=== PATIENT | female | born 1955 | race Caucasian/White ===

== ENCOUNTER 2020-06-17 17:56 | Emergency (ER) | payer OTHER ==
[2020-06-17] MEDS: Morphine 2 MG/ML SYRINGE IVPUSH ONE (18:25)
[2020-06-17] MEDS: Sodium Chloride 0.9% 1,000 ML IV ONE ×2 (18:50→19:44)
--- NOTE | 2020-06-17 19:20 | EDM.PDOC ---
ED HPI GENERAL MEDICAL PROBLEM - General Chief Complaint: General Stated Complaint: abdominal pain Time Seen by Provider: 06/17/20 18:00 Source of Information: Reports: Patient History Limitations: Reports: No Limitations - History of Present Illness INITIAL COMMENTS - FREE TEXT/NARRATIVE: Ms. Roman is a 64 YOF here for left flank pain. She takes no medications on a regular basis. She has not taken anything today for her pain. Reports blood in her urine. She has no fever. No N, V, or D. Lung are CTA. Normal HRR. No guarding or rebound tenderness. 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 GI/Abdominal: Reports: Abdominal Pain : Reports: Hematuria ED EXAM, GENERAL - Physical Exam Exam: See Below Exam Limited By: No Limitations General Appearance: Alert, Moderate Distress Eye Exam: Bilateral Eye: PERRL Nose: Normal Inspection, Normal Mucosa Throat/Mouth: Normal Inspection, Normal Lips, Other (Dentures) Neck: Normal Inspection, Supple, Non-Tender Respiratory/Chest: No Respiratory Distress, Lungs Clear, Normal Breath Sounds Cardiovascular: Normal Peripheral Pulses, Regular Rate, Rhythm, No Edema Peripheral Pulses: 2+: Brachial (L), Brachial (R) GI/Abdominal: Normal Bowel Sounds, Soft, Non-Tender Back Exam: Normal Inspection, Full Range of Motion Extremities: Normal Inspection, Normal Range of Motion Neurological: Alert, Oriented, CN II-XII Intact, Normal Cognition Psychiatric: Normal Affect, Normal Mood Skin Exam: Warm, Dry, Intact, Normal Color, Other (Left soft tissue breast lump, Feels solid not fixed. ) Lymphatic: No Adenopathy Course - Vital Signs Last Recorded V/S: Last Vital Signs Temp 36.3 C 06/17/20 18:10 Pulse 84 06/17/20 18:10 Resp 20 06/17/20 18:10 BP 201/150 H 06/17/20 18:10 Pulse Ox 96 06/17/20 18:10 - Orders/Labs/Meds Orders: Active Orders 24 hr Category Date Time Status Chest 2V [CR] Stat Exams 06/17/20 18:48 Ordered Kidney Stone Protocol [CT] Stat Exams 06/17/20 18:18 Taken Kidney Stone Protocol [CT] Stat Exams 06/17/20 18:24 Ordered COMPREHENSIVE METABOLIC PN,CMP [CHEM] Stat Lab 06/17/20 18:18 Ordered UA RFX MENDEZ AND CULT IF INDIC [URIN] Stat Lab 06/17/20 18:16 Received Sodium Chloride 0.9% [Normal Saline] 1,000 ml Med 06/17/20 18:20 Active IV .BOLUS Medication Orders Sodium Chloride (Normal Saline) 1,000 mls @ 999 mls/hr IV .BOLUS ONE Stop: 06/17/20 19:20 Last Admin: 06/17/20 18:50 Dose: 999 mls/hr Documented by: RADHA Labs: Laboratory Tests 06/17/20 Range/Units 18:17 WBC 10.7 (4.0-11.0) K/uL RBC 4.50 (3.80-5.80) M/uL Hgb 14.3 (11.5-16.5) g/dL Hct 41.4 (37.0-47.0) % MCV 92 (76-96) fL MCH 31.8 (27.0-32.0) pg MCHC 34.5 (31.0-35.0) g/dL RDW 12.7 (11.0-16.0) % Plt Count 325 (150-500) K/uL MPV 9.7 (6.0-10.0) fL Neut % (Auto) 59.4 (45.0-70.0) % Lymph % (Auto) 33.6 (20.0-40.0) % Pope % (Auto) 5.9 (3.0-10.0) % Eos % (Auto) 0.9 L (1.0-5.0) % Baso % (Auto) 0.2 (0.0-0.5) % Neut # (Auto) 6.35 (2.00-7.50) K/uL Lymph # (Auto) 3.59 (1.50-4.00) K/uL Pope # (Auto) 0.63 (0.20-0.80) K/uL Eos # (Auto) 0.10 (0.04-0.40) K/uL Baso # (Auto) 0.02 (0.02-0.10) K/uL Meds: Medications Generic Name Dose Route Start Last Admin Trade Name Freq PRN Reason Stop Dose Admin Sodium Chloride 1,000 mls @ 999 mls/hr 06/17/20 18:20 06/17/20 18:50 Normal Saline IV 06/17/20 19:20 999 mls/hr .BOLUS ONE Administration Discontinued Medications Generic Name Dose Route Start Last Admin Trade Name Freq PRN Reason Stop Dose Admin Morphine Sulfate 1 mg 06/17/20 18:10 06/17/20 18:25 Morphine IVPUSH 06/17/20 18:11 1 mg ONETIME ONE Administration Departure - Departure Time of Disposition: 21:20 Disposition: Home, Self-Care 01 Condition: Good Clinical Impression: Renal and ureteric calculus Hematuria Qualifiers: Hematuria type: gross Qualified Code(s): R31.0 - Gross hematuria - Discharge Information *PRESCRIPTION DRUG MONITORING PROGRAM REVIEWED*: Not Applicable Instructions: Kidney Stones, Dvep-sk-Ored Additional Instructions: Increase fluids. Take pain medications as prescribed. F/U with ED and or PCP for new or worsening symptoms. Keep appointment with PCP for left breast lump evaluation. Sepsis Event Note (ED) - Evaluation Sepsis Screening Result: No Definite Risk - Focused Exam Vital Signs: Vital Signs Temp Pulse Resp BP Pulse Ox 06/17/20 18:10 36.3 C 84 20 201/150 H 96 - My Orders Last 24 Hours: My Active Orders 06/17/20 18:16 UA RFX MENDEZ AND CULT IF INDIC [URIN] Stat 06/17/20 18:18 Kidney Stone Protocol [CT] Stat COMPREHENSIVE METABOLIC PN,CMP [CHEM] Stat 06/17/20 18:20 Sodium Chloride 0.9% [Normal Saline] 1,000 ml IV .BOLUS 06/17/20 18:24 Kidney Stone Protocol [CT] Stat 06/17/20 18:48 Chest 2V [CR] Stat - Assessment/Plan Last 24 Hours: My Active Orders 06/17/20 18:16 UA RFX MENDEZ AND CULT IF INDIC [URIN] Stat 06/17/20 18:18 Kidney Stone Protocol [CT] Stat COMPREHENSIVE METABOLIC PN,CMP [CHEM] Stat 06/17/20 18:20 Sodium Chloride 0.9% [Normal Saline] 1,000 ml IV .BOLUS 06/17/20 18:24 Kidney Stone Protocol [CT] Stat 06/17/20 18:48 Chest 2V [CR] Stat Assessment:: 2 left renal Calculi Plan: Increase fluids. Take pain medications as prescribed. F/U with ED and or PCP for new or worsening symptoms. Keep appointment with PCP for left breast lump evaluation.
[2020-06-17] MEDS ORDERED: Acetaminophen/oxyCODONE 325-5 MG Tab ONE (20:00)
--- NOTE | 2020-06-18 07:08 | CR ---
Date of Service: 06/17/20 Clinical Data: Abdominal pain, breast lump PA AND LATERAL CHEST: The heart size is normal. The lungs are clear. No pneumothorax. No pleural effusions. No evidence of acute intrathoracic disease. [id number] MTDD
--- NOTE | 2020-06-18 08:40 | CT ---
DATE OF SERVICE: 06/17/20 CLINICAL DATA: abdominal pain UNENHANCED ABDOMEN AND PELVIC CT: Multislice axial acquisition through the abdomen and pelvis without IV or oral contrast was performed. No priors. There are emphysematous changes in both lung bases. There are mild atelectatic changes in the dependent portion of both lower lungs, right greater than left. There is a 4 mm pleural-based nodule in the right middle lobe. There are cystic changes in both lung bases with peripheral honeycombing in the right lung base posteriorly. The unenhanced liver appears normal. No focal hepatic lesions. The gallbladder is partially contracted. It appears normal. The spleen appears normal. The pancreas appears normal. The right and left adrenals appear normal. There is a 3 mm distal ureteral calculus located in the distal left ureter at the S4 level. There is hydronephrosis and hydroureter proximal to it. There is a 2 mm nonobstructing renal calculi in the lower mid pole of the left kidney. The right and left kidneys and collecting systems are otherwise unremarkable. There is a small amount of fluid within the bladder. It appears grossly normal. There is mild diverticulosis of the colon. No evidence of diverticulitis. No free air. No free fluid. No dilated loops of bowel. No adenopathy. No aortic aneurysm. There is a small fat-containing umbilical hernia. There is mild degenerative disc disease at multiple levels in the lower thoracic and lumbar spine. IMPRESSION: 3 mm distal ureteral calculus on left with proximal hydronephrosis and hydroureter. Other findings as discussed above. [id number] [facility]
== END 2020-06-17 20:50 | disposition home or self-care (01) ==
LOC: LB.ED 17:56
DX: N13.2 Hydronephrosis with renal and ureteral calculous obstruction (principal); R31.0 Gross hematuria; N63.0 Unspecified lump in unspecified breast; Z72.0 Tobacco use
CPT/HCPCS: 36415; 71046; 74176; 80053; 81001; 85025; 96374; 99284; A9270; J2270; J7030

== ENCOUNTER 2021-01-08 12:15 | Emergency (ER) | payer OTHER ==
--- NOTE | 2021-01-08 13:30 | EDM.PDOC ---
ED HPI GENERAL MEDICAL PROBLEM - General Chief Complaint: Upper Extremity Injury/Pain Stated Complaint: PAIN IN LEFT ARM Time Seen by Provider: 01/08/21 13:10 Source of Information: Reports: Patient History Limitations: Reports: No Limitations - History of Present Illness INITIAL COMMENTS - FREE TEXT/NARRATIVE: patient here due to left lower rib cage pain and left shoulder pain. Reports that she fell 2 days ago on the ground when she trying to get off the bus. She landed on her left side. But since then, her rib cage has been hurting here, more with deep breathing, laughing or turning around. no fever or chills. Also reports pain in the left shoulder - hard to sleep on it. no other body injuries. 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 Review of Systems - Review of Systems Review Of Systems: See Below Constitutional: Reports: No Symptoms Eyes: Reports: No Symptoms Respiratory: Reports: No Symptoms Cardiovascular: Reports: No Symptoms GI/Abdominal: Reports: No Symptoms Skin: Reports: No Symptoms ED EXAM, GENERAL - Physical Exam Exam: See Below Exam Limited By: No Limitations General Appearance: Alert, WD/WN, No Apparent Distress Eye Exam: Bilateral Eye: EOMI Respiratory/Chest: No Respiratory Distress, Lungs Clear, Normal Breath Sounds, Other (mild left chest wall tenderness) GI/Abdominal: Normal Bowel Sounds, Soft, Non-Tender Extremities: Normal Inspection Neurological: Alert, Oriented, No Motor/Sensory Deficits Course - Vital Signs Last Recorded V/S: Last Vital Signs Temp 36.3 C 01/08/21 14:04 Pulse 97 01/08/21 14:04 Resp 14 01/08/21 14:04 BP 101/60 01/08/21 14:04 Pulse Ox 97 01/08/21 14:04 - Orders/Labs/Meds Orders: Active Orders 24 hr Category Date Time Status Ribs 2V w Chest Lt [CR] Stat Exams 01/08/21 13:23 Ordered Shoulder Comp Lt [CR] Stat Exams 01/08/21 13:24 Ordered Meds: Medications Discontinued Medications Generic Name Dose Route Start Last Admin Trade Name Freq PRN Reason Stop Dose Admin Ketorolac Tromethamine 30 mg 01/08/21 14:25 01/08/21 14:34 Ketorolac 30 Mg/Ml Sdv IM 01/08/21 14:26 30 mg ONETIME ONE Administration Ketorolac Tromethamine Confirm 01/08/21 14:44 Ketorolac 30 Mg/Ml Sdv Administered 01/08/21 14:45 Dose 30 mg .ROUTE .STK-MED ONE Lidocaine 700 mg 01/08/21 14:25 Lidocaine 5% 700 Mg Patch TOP 01/08/21 14:26 ONETIME ONE - Re-Assessments/Exams Free Text/Narrative Re-Assessment/Exam: CXR with ribs view - no rib fracture. but possible atelectasis to the left side shoulder xrays - no acute fractures pain control with IM toradol Departure - Departure Time of Disposition: 14:39 Disposition: Home, Self-Care 01 Condition: Good Clinical Impression: Contusion of left back wall of thorax, initial encounter, Atelectasis of left lung - Discharge Information *PRESCRIPTION DRUG MONITORING PROGRAM REVIEWED*: Not Applicable *COPY OF PRESCRIPTION DRUG MONITORING REPORT IN PATIENT OFE: Not Applicable Prescriptions: Lidocaine 5% [Lidoderm 5%] 1 patch TOP DAILY #7 patch traMADol HCl [Tramadol HCl] 50 mg PO Q6H PRN #10 tablet PRN Reason: Pain (Moderate 4-6) Referrals: Michelle Duckworth MD [Primary Care Provider] - Forms: ED Department Discharge Sepsis Event Note (ED) - Focused Exam Vital Signs: Vital Signs Temp Pulse Resp BP Pulse Ox 01/08/21 14:04 36.3 C 97 14 101/60 97 - Problem List & Annotations (1) Atelectasis of left lung SNOMED Code(s): 23774242 Code(s): J98.11 - ATELECTASIS Status: Acute Priority: Low Current Visit: Yes (2) Contusion of left back wall of thorax, initial encounter SNOMED Code(s): 75035552654620610, [id number] Code(s): S20.222A - CONTUSION OF LEFT BACK WALL OF THORAX, INITIAL ENCOUNTER Status: Acute Priority: Low Current Visit: Yes - Problem List Review Problem List Initiated/Reviewed/Updated: Yes - My Orders Last 24 Hours: My Active Orders 01/08/21 13:23 Ribs 2V w Chest Lt [CR] Stat 01/08/21 13:24 Shoulder Comp Lt [CR] Stat - Assessment/Plan Last 24 Hours: My Active Orders 01/08/21 13:23 Ribs 2V w Chest Lt [CR] Stat 01/08/21 13:24 Shoulder Comp Lt [CR] Stat Plan: - take pain meds as prescribed - use incentive spirometer daily - follow up with your PCP in 3-7 days as needed - apply lidocaine patch on the affected area - return to the ER if fever or worsening shortness of breath
[2021-01-08] MEDS ORDERED: Lidocaine 5% 700 MG Patch TOP ONE (14:25)
[2021-01-08] MEDS ORDERED: Ketorolac 30 MG/ML SDV IM ONE (14:25)
[2021-01-08] MEDS ORDERED: Ketorolac 30 MG/ML SDV ONE (14:44)
--- NOTE | 2021-01-09 08:52 | CR ---
DATE OF SERVICE: 01/08/21 CLINICAL DATA: fell- ribs pain PA CHEST AND LEFT RIBS: Comparison is made to a prior chest x-ray dated 06/17/20. The heart size is normal. There is calcification of the aortic arch. There is poorly defined infiltrate and consolidation in the left lung base. Pneumonia should be considered. Considering the patient's clinical history, pulmonary contusion should be considered. The right lung is clear. No pneumothorax. No displaced rib fractures. No other significant findings. [id number]
--- NOTE | 2021-01-09 08:54 | CR ---
DATE OF SERVICE: 01/08/21 CLINICAL DATA: fell- pain LEFT SHOULDER: No priors. There are mild osteoarthritic changes of the AC and glenohumeral joints. No acute abnormalities. No lytic or blastic bone lesions. [id number] MTDD
== END 2021-01-08 14:50 | disposition home or self-care (01) ==
LOC: LB.ED 12:15
DX: S20.222A Contusion of left back wall of thorax, initial encounter (principal); J98.11 Atelectasis; W18.30XA Fall on same level, unspecified, initial encounter
CPT/HCPCS: 71101-LT; 73030-LT; 96372; 99283-25; A9270-GY; J1885